=== PATIENT | male | born 1945 | race Caucasian/White ===

== ENCOUNTER 2016-06-08 17:08 | Emergency (ER) | payer MEDICARE, OTHER ==
[~2016-06-08 17:08] MED LIST: ADULT ASPIRIN81 MG PO; ALAVERT D PO; ALBUTERO; ALEVE220 M2 PO; AMLODIPINE-BEN1 EAC3 PO; AZOR 10-40 MG1 EACH PO; BUPROPION HCL75 M1 PO; BUPROPION HCL75 MG PO; CIPRO500 M2 PO; CIPRO500 MG PO; COD LIVER OIL1 CAP PO; COLACE100 M1 PO; DEPADE50 MG PO; DOXAZOSIN; DOXAZOSIN MESYLA4 M2 PO; EQL FISH OIL 1,1 CA1 PO; FISH OIL 1,2001 EAC4 PO; FLUNISOLIDE25 M1; FLUNISOLIDE25 M3; LORATADINE10 M2 PO; LOW DOSE ASPIRI81 M3 PO; MIRTAZAPINE15 M1 PO; MIRTAZAPINE30 MG PO; MULTIVITAMIN W/1 T PO; NORCO 5-325 TA1 EACH PO; OMEPRAZOLE20 MG PO; PERCOCET 5-3251 EACH PO; PRILOSEC40 M1 PO; PROVENTIL HFA6.7 GM IH; SPIRIVA18 MC1 IH; SPIRIVA18 MCG IH; SYMBICORT 80/10.2 GM IH; TRIAMCINOLONE A15 GM TP; TRIAMTERENE/HYDR1 EA PO; TROSPIUM CHLORI20 MG PO
== END 2016-06-08 18:20 ==
LOC: EDMED 17:08
DX: T46.1X1A Poisoning by calcium-channel blockers, accidental (unintentional), initial encounter (principal); I10 Essential (primary) hypertension; J45.909 Unspecified asthma, uncomplicated; Z79.51 Long term (current) use of inhaled steroids; Z79.899 Other long term (current) drug therapy